=== PATIENT | female | born 1970 | race Hispanic/Latino ===

== ENCOUNTER 2021-04-10 22:16 | Emergency (ER) | payer OTHER ==
[~2021-04-10] VITALS: Ht 152.4 cm; Wt 57.2 kg
[2021-04-11] MEDS ORDERED: ONDANSETRON ODT4 MG PO (00:26)
== END 2021-04-11 01:15 | disposition home or self-care (01) ==
LOC: ER 22:19
DX: R07.9 Chest pain, unspecified (principal); Z20.822 Contact with and (suspected) exposure to COVID-19
CPT/HCPCS: 71045; 93005; 99283; U0002